=== PATIENT | male | born 1985 | race Caucasian/White ===

== ENCOUNTER 2020-02-26 14:46 | Outpatient (REF) | payer OTHER, SELFPAY ==
[2020-02-26 21:00] LABS: Calculated LDL 146 mg/dL (<100); Cholesterol 205 mg/dL (<200); Glucose 88 mg/dL (74-106); HDL Cholesterol 43 mg/dL (40-60); Triglyceride 81 mg/dL (<150)
== END 2020-02-26 15:06 ==
LOC: NCHCN 14:46
PROVIDERS: PCP Internal Medicine; Visit Provider Internal Medicine
DX: Z00.00 Encounter for general adult medical examination without abnormal findings (principal); Z13.220 Encounter for screening for lipoid disorders; Z13.1 Encounter for screening for diabetes mellitus
CPT/HCPCS: 80061; 82947

== ENCOUNTER 2021-08-04 17:52 | Outpatient (REF) | payer OTHER, SELFPAY ==
[2021-08-04 20:07] LABS: ALT 43 U/L (16-63); Anion Gap 8.8 mmol/L (3-11); BUN 17 mg/dL (7-18); CO2 29.2 mmol/L (21.0-32.0); CREATININE 0.9 mg/dL (0.70-1.30); Calcium 9.1 mg/dL (8.5-10.1); Chloride 103 mmol/L (98-107); Glucose 89 mg/dL (74-106); Potassium 4.1 mmol/L (3.5-5.1); Sodium 141 mmol/L (136-145)
== END 2021-08-04 17:53 | disposition home or self-care (01) ==
LOC: NCHCN 17:52
PROVIDERS: PCP Internal Medicine; Visit Provider Internal Medicine
DX: I10 Essential (primary) hypertension (principal); B35.1 Tinea unguium; Z51.81 Encounter for therapeutic drug level monitoring
CPT/HCPCS: 80048; 84460

== ENCOUNTER 2022-08-08 17:53 | Outpatient (REF) | payer OTHER, SELFPAY ==
[2022-08-08 19:41] LABS: HCT 45.9 % (40.0-50.0); MCH 28.7 pg (27.0-33.0); MCHC 34.9 % (32.0-36.0); MCV 82 fL (80-95); MPV 9.3 fL (8.0-11.0); Platelet Count 346 10^3/uL (130-400); RBC 5.57 10^6/uL (4.36-5.78); RDW 12.6 % (11.8-14.1); RDW-SD 37.7 fL; WBC 7.56 10^3/uL (4.4-10.8)
[2022-08-08 20:18] LABS: Anion Gap 4.9 mmol/L (3-11); BUN 21 mg/dL (7-18); CO2 31.1 mmol/L (21.0-32.0); CREATININE 1.1 mg/dL (0.70-1.30); Calcium 9.5 mg/dL (8.5-10.1); Chloride 102 mmol/L (98-107); Estimated GFR 88.12 (mL/min/1.73m2); Glucose 87 mg/dL (74-106); Potassium 3.6 mmol/L (3.5-5.1); Sodium 138 mmol/L (136-145); TSH 0.71 uIU/mL (0.36-3.74)
== END 2022-08-08 17:54 | disposition home or self-care (01) ==
LOC: NCHCN 17:53
PROVIDERS: PCP Internal Medicine; Visit Provider Internal Medicine
DX: R00.0 Tachycardia, unspecified (principal); I10 Essential (primary) hypertension
CPT/HCPCS: 80048; 85027; 84443

== ENCOUNTER 2023-12-07 20:36 | Outpatient (REF) | payer OTHER, SELFPAY ==
[2023-12-07 19:48] LABS: Anion Gap 7.2 mmol/L (3-11); BUN 17 mg/dL (7-18); CO2 29.8 mmol/L (21.0-32.0); Calcium 9.1 mg/dL (8.5-10.1); Calculated LDL 114 mg/dL (<100); Chloride 107 mmol/L (98-107); Cholesterol 193 mg/dL (<200); Estimated GFR 97.58 (mL/min/1.73m2); Glucose 85 mg/dL (74-106); HDL Cholesterol 46 mg/dL (40-60); Sodium 144 mmol/L (136-145); Triglyceride 167 mg/dL (<150)
== END 2023-12-07 20:37 | disposition home or self-care (01) ==
LOC: NCHCN 20:36
PROVIDERS: PCP Internal Medicine; Visit Provider Internal Medicine
DX: I10 Essential (primary) hypertension (principal)
CPT/HCPCS: 80048; 80061

== ENCOUNTER 2024-07-18 02:34 | Outpatient (CLI) | payer OTHER, SELFPAY ==
--- NOTE | 2024-07-18 06:45 | DI.MRI_ITS ---
Exam(s) MR LOWER JOINT LT WO EXAM: MR LOWER JOINT LT WO CLINICAL HISTORY: L KNEE PAIN,internal derangement,m23.92. TECHNIQUE: Multiplanar multisequence MRI was performed. COMPARISON: CR XR KNEE 3V BILAT-M2 from 06/19/2024 FINDINGS: BONES: There is no fracture or contusion pattern. JOINTS: A small joint effusion is present. Articular cartilage: Patellofemoral joint: High signal and fissures at the patellar apex. Medial femoral tibial joint: Articular cartilage is unremarkable. Lateral femoral tibial joint: Articular cartilage is unremarkable. LIGAMENTS/TENDONS: Anterior Cruciate: Unremarkable. Posterior Cruciate: Unremarkable. Medial Collateral:Unremarkable. Lateral Collateral ligament complex: Unremarkable. Extensor mechanism: Unremarkable. Medial retinaculum: Unremarkable. Lateral retinaculum: Unremarkable. Popliteus: Unremarkable. MENISCI: The medial meniscus is unremarkable. The lateral meniscus there is a small linear area of high signal in the apex of the body of the later al meniscus. MUSCLES: Unremarkable. SOFT TISSUES: 9 millimeter meniscal cyst or ganglion seen anterior to the level of the tibial spines. IMPRESSION: Small horizontal tear at the apex of the body of the lateral meniscus. Small joint effusion. Small ganglion cyst versus meniscal cyst anterior to the level of the medial tibial spine. 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 DATA REPOSITORY:
--- NOTE | 2024-07-18 06:45 | DI.MRI_ITS ---
Exam(s) MR LOWER JOINT RT WO EXAM: MR LOWER JOINT RT WO CLINICAL HISTORY: R KNEE PAIN,internal derangement,patellofemoral syndrome,M23.91,M22.2X1. TECHNIQUE: Multiplanar multisequence MRI was performed. COMPARISON: MR MR KNEE RT WO CONTRAST from 07/27/2010 CR XR KNEE 3V BILAT-M2 from 06/19/2024 FINDINGS: BONES: There is no fracture or contusion pattern. JOINTS: There is hyperintense signal seen in the articular cartilage with thinning of the articular c artilage especially at the lateral patellar facet. No effusion is present. TENDONS: Extensor mechanism: Unremarkable. Medial retinaculum: Unremarkable. Lateral retinaculum: Unremarkable. Popliteus: Unremarkable. MUSCLES: Unremarkable. MENISCI: The medial meniscus is unremarkable. There is a small focus of hyperintense signal seen on the free edge of the body of the lateral meniscus suspicious for tear. SOFT TISSUES: Unremarkable. LIGAMENTS: Anterior Cruciate: Unremarkable. Posterior Cruciate: Unremarkable. Medial Collateral:Unremarkable. Lateral Collateral: Unremarkable. OTHER: IMPRESSION: 1. Findings suspicious for tear of the body of the lateral meniscus. 2. No evidence of a ligament tear. 3. Chondromalacia of the patella. DATA REPOSITORY:
== END 2024-07-18 02:54 ==
LOC: DI 02:34
PROVIDERS: PCP Internal Medicine; Visit Provider Student in an Organized Health Care Education/Training Program
DX: S83.281A Other tear of lateral meniscus, current injury, right knee, initial encounter (principal); M22.2X1 Patellofemoral disorders, right knee; M25.561 Pain in right knee; X58.XXXA Exposure to other specified factors, initial encounter
CPT/HCPCS: 73721

== ENCOUNTER 2024-07-29 17:53 | Outpatient (REF) | payer OTHER, SELFPAY ==
[2024-07-29 19:21] LABS: HCT 44.4 % (40.0-50.0); HGB 15.4 g/dL (13.5-17.5); MCH 28.6 pg (27.0-33.0); MCHC 34.7 % (32.0-36.0); MCV 82 fL (80-95); MPV 9.1 fL (8.0-11.0); Platelet Count 327 10^3/uL (130-400); RBC 5.39 10^6/uL (4.36-5.78); RDW 12.5 % (11.8-14.1); RDW-SD 37.2 fL; WBC 8.88 10^3/uL (4.4-10.8)
[2024-07-29 19:33] LABS: C-Reactive Protein < 0.50 mg/dL (<or=0.5)
[2024-07-31 08:20] LABS: IgA 188 mg/dL (85-499)
[2024-07-31 11:53] LABS: Tissue Transglutaminase IgA <4.0 CU (<20.0)
== END 2024-07-29 17:54 | disposition home or self-care (01) ==
LOC: NCHCN 17:53
PROVIDERS: PCP Internal Medicine; Visit Provider Internal Medicine
DX: K52.9 Noninfective gastroenteritis and colitis, unspecified (principal)
CPT/HCPCS: 82784; 85027; 86140

== ENCOUNTER 2025-02-17 06:53 | Day surgery (SDC) | payer OTHER, SELFPAY ==
--- NOTE | 2025-02-16 15:16 | ANES.PREOP_ITS ---
General Info Date of Service Date Performed: 02/17/25 Height: 6 ft 0.5 in Weight: 110.223 kg Body Mass Index (BMI): 32.5 Surgical Procedure: Operation Date: 02/17/25 08:40 Proposed Procedure Side Surgeon p Septoplasty/ Inferior Turbinoplasty Bilateral Seth Pike MD Meds Allergies and Home Medications Allergies Allergy/AdvReac Type Severity Reaction Status Date / Time penicillin V Allergy Hives Verified 02/17/25 07:10 Home Medication ?Medication ?Instructions ?Recorded losartan 50 mg-hydrochlorothiazide 1 tab PO DAILY 01/27 10/21 12.5 mg tablet Current Visit Medications: Current Medications Generic Name Dose Route Start Last Admin Trade Name Freq PRN Reason Stop Dose Admin Ringer's Solution 1,000 mls @ 50 mls/hr 02/17/25 06:00 IV 03/16/25 23:59 INFUSION SOLEDAD Tranexamic Acid/Sodium Chloride 1,000 mg in 100 mls @ 600 mls/hr 02/17/25 06:00 IVPB 03/16/25 23:59 PREOP SOLEDAD Clindamycin Phosphate/Dextrose 900 mg in 50 mls @ 50 mls/hr 02/17/25 06:00 Cleocin In D5w IVPB 02/17/25 23:59 PREOP SOLEDAD Sodium Chloride 0 ml 02/17/25 06:00 Normal Saline Flush 10 Ml Syr IV 03/16/25 23:59 PRN PRN Sodium Chloride 0 ml 02/17/25 06:00 Normal Saline 10 Ml Vial IJ 03/16/25 23:59 DIRECTED PRN Sterile Water 0 ml 02/17/25 06:00 Water,Injection,Sterile 10 Ml Vial IJ 03/16/25 23:59 DIRECTED PRN PFSH Active Problems Active Problems: Problem Status Onset Code Deviated nasal septum Acute J34.2 Chronic nasal congestion Acute R09.81 Internal derangement of both knees Acute M23.91, M23.92 Bilateral patellofemoral syndrome Acute M22.2X1, M22.2X2 Hyperlipidemia Acute E78.5 Hypertension Chronic I10 Surgical History Surgical History History of vasectomy Tobacco Smoking/Tobacco Use Status: Never Passive smoking exposure: No Alcohol Alcohol Intake: current Alcohol intake frequency: a few times a month Substance Use Substance use: Never Substance use type: does not use Vital Signs and Lab Results Vital Signs Most Recent Vital Signs in EMR: Temp Pulse Resp BP Pulse Ox 36.4 C L 64 16 141/97 H 99 02/17/25 07:05 02/17/25 07:05 02/17/25 07:05 02/17/25 07:05 02/17/25 07:05 Anesthesia Assessment and Plan Anesthesia History Personal History: No History of Anesthesia Complications Family History: No Family History of Anesthesia Complications Exercise Tolerance Exercise Tolerance: Metabolic Equivalents>4 Cardiac & Pulmonary Exam Cardiac Exam: Normal S1/S2 Heart Sounds Pulmonary Exam: Clear Bilateral Breath Sounds Implantable Cardiac Device Does patient have a Pacemaker or an ICD?: No Airway Exam Known Difficult Airway: No Mallampati Class: 2 Mouth Opening: Normal (> 3cm) Thyromental Distance: Greater than 3 cm Facial Hair: Full [place]ck Range of Motion: Full ROM Neck Circumference: Normal Teeth Condition: Normal Dentition ASA Classification ASA Score: ASA 2 Emergency Case?: No NPO Status NPO Status: NPO Clears >2 hours, Solids >8 hours Anesthesia Plan Resuscitation Status: Full Code Anesthesia Technique: General Anesthesia Airway Planned: Endotracheal Tube Monitors Used: Standard Monitors Preoperative Comments:: 39 yo for Sig PMhx: HTN.
[2025-02-17] VITALS (18 sets, daily range): BP systolic 112–141; BP diastolic 75–97; PULSE 60–74; RESP 16–23; TEMP 36.2–36.7; O2SAT 94–100; BMI 32.5
[2025-02-17] MEDS: Lactated Ringers 1,000 ML 50 ML IV (07:25)
[2025-02-17] MEDS: CLINDAMYCIN 900 MG/50 ML BAG 50 MG IVPB (07:38)
--- NOTE | 2025-02-17 08:03 | W.PM.DSUDISC ---
Date of service: 02/17/25 Discharge Plan Disposition Patient Disposition: Home Condition: Good Discharge Details Reason For Visit: Septoplasty, inferior turbinoplasty Attending Provider: Seth Pike Primary Care Provider: Rohit Shi Home Meds and New Rx's Prescriptions: New clindamycin HCl [Cleocin HCl] 150 mg capsule 150 mg PO TID Qty: 21 0RF No Action losartan-hydrochlorothiazide 50-12.5 mg tablet 1 tab PO DAILY Patient Comments: TAKE 1 TABLET BY MOUTH ONCE DAILY Discharge Instructions Additional Instructions: My cell phone number is [phone]. Please call with any questions or concerns. If you are unable to reach me and you feel this is an emergency, please call 911 or proceed to the emergency room Stand Alone Forms: ENT-[facility] Pike, Portal Information Referrals: Seth Pike MD [ [facility] STAFF PHYSICIAN, ENT Surgical] Referral Note: 1 week as scheduled Discharge Orders Discharge Orders: Discharge Order (Routine); Ordered 02/17/25 Ordered By: Seth Pike
--- NOTE | 2025-02-17 08:07 | W.PM.OP ---
Operative Note Operative Note PRE-OP DIAGNOSIS: Deviated nasal septum, chronic nasal obstruction POST-OP DIAGNOSIS: same PROCEDURE: Septoplasty, bilateral inferior turbinoplasty SURGEON: Seth Pike ANESTHESIA TYPE: General LMA/ETT Refer to Anesthesia Record ESTIMATED BLOOD LOSS: 20 PATHOLOGY: none sent COMPLICATIONS: None Patient was transported to: PACU Patient's condition: stable Implants: Peralta splints Indications: The patient has chronic nasal obstruction on the left that is medically recalcitrant and due to a marked deviation of the nasal septum. Options were explained to the family regarding further management. He and his wish to undergo the above procedure. Consent was filled out and signed prior to the procedure. H&P was reviewed. There have been no changes. All questions were answered prior to the procedure Findings: Markedly deviated nasal septum resulting in near-total obstruction of the left nasal cavity. Compensatory inferior turbinate hypertrophy on the right. Procedure Description: After obtaining an adequate level of general endotracheal anesthesia the patient was positioned in the supine position and prepped and draped in appropriate fashion. 1% lidocaine with 1/100,000 epinephrine was injected in the septum in the submucosal plane bilaterally as well as into the inferior turbinate on the right. Following this, cocaine coated nasal pledgets were placed and left for 5 minutes. A left-sided hemitransfixion incision was made and submucoperichondrial and submucoperiosteal planes were developed along the left side of the nasal septum including over the large spur. A [place] knife was then used to incise the cartilage anteriorly leaving a strong dorsal and columellar strut. Submucoperichondrial and submucoperiosteal planes were then developed along the right side of the nasal septum posteriorly. A swivel knife was used to remove the bulk of the deviated quadrangular cartilage anteriorly and then a combination of Randall-Tomlinson's and Macey's were used to remove the deviated quadrangular cartilage to that which overlapped the osseous cartilage posteriorly. A 4 mm chisel was then used to remove the deviated bony nasal septum from along the floor on the left. Mucosa was inspected revealing no through and through perforations and the bleeding was minimal. A small vent hole was made on the left side of the nasal septum to allow any blood to escape. A 4.0 chromic suture was used to reapproximate the edges of the hemitransfixion incision and then attention was turned to the inferior turbinates. Electrocautery suction tip catheter was used to reduce the mucosal redundancy along the inferior and medial edges of the inferior turbinates with on a setting of 15 W coagulation. Following this a [place] elevator was used to lateralize the residual turbinate resulting in marked improvement in nasal airway bilaterally. Once this and the septoplasty had been accomplished, the [place] elevator could be passed freely from the anterior nares to the nasopharynx without fraction. Septum was inspected revealing no evidence of a septal hematoma. Peralta splints were then carefully introduced and sutured anteriorly with a quilting suture of 2.0 Prolene suture along the anterior septum. Care was taken not to over tighten the suture so as to not compress the mucosa between the sutures and the splint. Following this the patient was awakened and extubated by anesthesia and taken the recovery room in stable condition. I was present throughout the entire case. Date of Procedure: 02/17/25
[2025-02-17] MEDS: TRANEXAMIC ACID/SOD. CHL. 1,000 MG/100 ML BAG 600 MG IVPB (08:40)
[2025-02-17] MEDS: Cocaine Nasal 4% 4 ML BTL (08:49)
[2025-02-17] MEDS: Bacitracin 1 PACKET (08:51)
--- NOTE | 2025-02-17 09:58 | W.PM.DSUDISC ---
Date of service: 02/17/25 Discharge Plan Disposition Patient Disposition: Home Condition: Good Discharge Details Reason For Visit: Septoplasty, inferior turbinoplasty Attending Provider: Seth Pike Primary Care Provider: Rohit Shi Home Meds and New Rx's Prescriptions: New clindamycin HCl [Cleocin HCl] 150 mg capsule 150 mg PO TID Qty: 21 0RF No Action losartan-hydrochlorothiazide 50-12.5 mg tablet 1 tab PO DAILY Patient Comments: TAKE 1 TABLET BY MOUTH ONCE DAILY Discharge Instructions Additional Instructions: My cell phone number is [phone]. Please call with any questions or concerns. If you are unable to reach me and you feel this is an emergency, please call 911 or proceed to the emergency room Stand Alone Forms: ENT-Jose Pike, Portal Information Referrals: Seth Pike MD [ [facility] STAFF PHYSICIAN, ENT Surgical] Referral Note: Monday, 11 AM (02/17/2025) Discharge Orders Discharge Orders: Discharge Order (Routine); Ordered 02/17/25 Ordered By: Seth Pike
[2025-02-17] MEDS: Lidocaine 1% Multi-Dose W/EPI 1/100,000 50 ML VIAL (10:00)
--- NOTE | 2025-02-17 10:20 | W.ANESPOSTOP ---
Postoperative Evaluation Date, Time and Location Date Performed: 02/17/25 Time Performed: 10:20 Patient Location: PACU Vital Signs Most Recent Imported Vital Signs: Most Recent Vital Signs Temp Pulse Resp BP Pulse Ox 36.6 C 64 19 114/75 100 02/17/25 10:11 02/17/25 10:11 02/17/25 10:11 02/17/25 10:11 02/17/25 10:11 Pain Score Most Recent Pain Score: Most Recent Pain Score Pain Level 0 02/17/25 07:05 Assessment Mental Status: Arousable with meaningful communication Airway and Respiratory Function: Patent airway with normal (patient baseline) respiratory exam Cardiovascular Function: Hemodynamically Stable Hydration Status: Adequately Hydrated Nausea & Vomiting: No Nausea or Vomiting Pain: Pain is tolerable per patient Peripheral Nerve Block: Patient did not receive a nerve block
== END 2025-02-17 11:46 | disposition home or self-care (01) ==
PROVIDERS: PCP Internal Medicine; Visit Provider Otolaryngology
PROC: (CPT 30130; principal; 2025-02-17 08:30)
DX: J34.2 Deviated nasal septum (principal); J34.3 Hypertrophy of nasal turbinates; R09.81 Nasal congestion; I10 Essential (primary) hypertension; E78.5 Hyperlipidemia, unspecified
CPT/HCPCS: 30130; 30520; J0131; J0737; J1100; J2004; J2405; J2704; J3475